=== PATIENT | female | born 1970 | race Caucasian/White ===

== ENCOUNTER 2019-05-27 10:07 | Emergency (ER) | payer MEDICAID ==
[2019-05-27] MEDS: DEXAMETHASONE 10 MG/ML 1 ML INJ IM (11:24)
== END 2019-05-27 12:00 | disposition home or self-care (01) ==
LOC: FTE 10:07
DX: M54.12 Radiculopathy, cervical region (principal); Z85.43 Personal history of malignant neoplasm of ovary
CPT/HCPCS: 93005; 96372; 99284-25